=== PATIENT | female | born 1950 | race Caucasian/White ===

== ENCOUNTER 2023-03-07 12:54 | Day surgery (SDC) | payer MEDICARE, SELFPAY ==
[2023-03-05 09:33] VITALS: BMI 22.2
[2023-03-07 13:23] VITALS: BP 141/73; PULSE 90; RESP 16; TEMP 36.6; O2SAT 99
[2023-03-07] MEDS: Lactated Ringers 1,000 ML 100 ML IVCONT (13:35)
--- NOTE | 2023-03-07 14:20 | P.CONAN_ITS ---
Documented by User: Jennifer Ramirez NP 03/06/23 10:40 HPI - Anesthesia Eval Consult details Narrative: 72yo F for Eye Muscle Bilateral Medial Rectus Recession,Right Superior Rectus recession PCP cleared [facility] Past Medical History Medical History (Updated 03/05/23 @ 09:31 by Evangelina Frye RN) History of COVID-19 Hx of flexible sigmoidoscopy Lung nodule Migraine Osteopenia Surgical History Surgical History (Updated 03/05/23 @ 09:31 by Evangelina Frye RN) H/O colonoscopy Hx of breast biopsy Hx of cataract extraction Hx of tonsillectomy Social History Social History (Updated 03/05/23 @ 09:31 by Evangelina Frye RN) Patient Tobacco Use Status: Never used Tobacco Use of substances other than those prescribed or required for medical reasons: No Are you DNR?: No Advance Directives: No Advance Directives Information Provided: Yes Meds Allergies Allergy/AdvReac Type Severity Reaction Status Date / Time No Known Allergies Allergy Verified 03/05/23 09:32 Home Medications Medication Instructions Recorded Confirmed Last Taken Type calcium carbonate 600 mg-vitamin 1 tab PO DAILY 03/05/23 03/05/23 Unknown History D3 5 mcg (200 unit) tablet Exam Exam Date and Time: March 06, 2023 1039 Height,Weight and Vital Signs: Height 5 ft 3 in Weight 56.9 kg Assessment and Plan Assessment Anesthesia Assessment: Chart Reviewed Documented by User: Yvette Patrick DO 03/07/23 14:25 [facility] Past Medical History Medical History (Updated 03/05/23 @ 09:31 by Evangelina Frye RN) History of COVID-19 Hx of flexible sigmoidoscopy Lung nodule Migraine Osteopenia Surgical History Surgical History (Updated 03/05/23 @ 09:31 by Evangelina Frye RN) H/O colonoscopy Hx of breast biopsy Hx of cataract extraction Hx of tonsillectomy History of Problems with Anesthesia: No Social History Social History (Updated 03/05/23 @ 09:31 by Evangelina Frye RN) Patient Tobacco Use Status: Never used Tobacco Use of substances other than those prescribed or required for medical reasons: No Are you DNR?: No Advance Directives: No Advance Directives Information Provided: Yes Meds Allergies Allergy/AdvReac Type Severity Reaction Status Date / Time No Known Allergies Allergy Verified 03/05/23 09:32 Home Medications Medication Instructions Recorded Confirmed Last Taken Type calcium carbonate 600 mg-vitamin 1 tab PO DAILY 03/05/23 03/05/23 Unknown History D3 5 mcg (200 unit) tablet Exam Exam Date and Time: March 07, 2023 1420 Height,Weight and Vital Signs: Height 5 ft 3 in Weight 56.9 kg Vital Signs Temperature 97.9 F 03/07/23 13:23 Pulse Rate 90 03/07/23 13:23 Respiratory Rate 16 03/07/23 13:23 Blood Pressure 141/73 H 03/07/23 13:23 Pulse Oximetry 99 03/07/23 13:23 Oxygen Delivery Method Room Air 03/07/23 13:23 Temperature 97.9 F 03/07/23 13:23 Pulse Rate 90 03/07/23 13:23 Respiratory Rate 16 03/07/23 13:23 Blood Pressure 141/73 H 03/07/23 13:23 Pulse Oximetry 99 03/07/23 13:23 Oxygen Delivery Method Room Air 03/07/23 13:23 Airway Mallampati Class: I TM Dist: >3cm Neck ROM: Full Denture: Upper and Lower Loose/Missing/Broken Teeth: No Heart: S1S2 Lungs: CTAB Assessment and Plan Assessment Anesthesia Assessment: Anesthesia Plan Discussed Final Anesthetic Review History of Problems with Anesthesia: No NPO: Yes ASA Class: II Final Preanesthetic Review: No Changes in Pt Med Stat, Meds/Allgs Chart Reviewed, Consent Obtained/Reviewed and Anes Risks/Benef Reviewed Patient Risk: Low Procedure Risk: Low Anesthetic Plan Anesthetic Plan: GA and Agree w/ Assess. and Plan Disposition: Standard PACU
[2023-03-07 15:37] VITALS: BP 146/79; PULSE 90; RESP 20; TEMP 37.4; O2SAT 98
[2023-03-07 15:40] VITALS: BP 148/79; PULSE 83; RESP 20; O2SAT 98
--- NOTE | 2023-03-07 15:41 | P.OPHTHAL_ITS ---
Ophthalmology Operative Note Date of Service: 03/07/23 Narrative: Diagnoses 1. Esotropia 2. Left hypertropia. Procedures 1. Bilateral medial rectus recessions of 3.5 mm. 2. Recession of left superior rectus [address] Xavier. Anesthesia general. Complications none. The patient was brought to the operating room placed under general anesthesia. The eyes were prepped and draped in the usual sterile ophthalmic fashion. A lid speculum was placed in the right eye and incisions made at bare sclera in the inferonasal fornix. The medial rectus muscle was hooked and secured with a double-armed Vicryl suture. It was disinserted from the globe and reattached to a position 3 .5 mm behind the original insertion. Conjunctiva was closed with interrupted Vicryl sutures. An identical procedure was then performed on the left eye. An incision was then made down to bare sclera in the superior temporal fornix of the left eye. The superior rectus muscle was hooked and secured with a double- armed Vicryl suture. The muscle was disinserted the globe and reattached to a position 2 mm behind the original insertion. Conjunctiva was closed with interrupted Vicryl sutures. The patient was then awoken from general anesthesia and discharged to postoperative recovery in good condition.
[2023-03-07 15:45] VITALS: BP 153/74; PULSE 76; RESP 18; O2SAT 98
[2023-03-07 15:50] VITALS: BP 147/59; PULSE 77; RESP 18; O2SAT 98
[2023-03-07] MEDS: Tetracaine HCl/PF 0.5% Oph Sol 4 ML DROPS 1 DROP EYE-BOTH (16:02)
[2023-03-07 16:04] VITALS: BP 149/69; PULSE 75; RESP 16; O2SAT 98
== END 2023-03-07 16:24 | disposition home or self-care (01) ==
PROVIDERS: PCP Internal Medicine; Visit Provider Ophthalmology
PROC: (CPT 67311; principal; 2023-03-07 14:20)
DX: H53.2 Diplopia (principal); H50.00 Unspecified esotropia; H50.22 Vertical strabismus, left eye; R91.1 Solitary pulmonary nodule; M85.80 Other specified disorders of bone density and structure, unspecified site; B35.1 Tinea unguium; N60.19 Diffuse cystic mastopathy of unspecified breast; Z98.890 Other specified postprocedural states; Z79.899 Other long term (current) drug therapy; Z86.16 Personal history of COVID-19; Z91.81 History of falling
CPT/HCPCS: 67311; 67314; J0131; J1100; J2370; J2405; J3010

== ENCOUNTER 2023-12-18 16:18 | Outpatient (REF) | payer MEDICARE, SELFPAY ==
[2023-12-18 18:03] LABS: C Reactive Protein < 0.10 mg/dL (< or = 0.50)
[2023-12-18 18:19] LABS: Erythrocyte Sedimentation Rate 4 MM/HR (0-20)
[2023-12-20 09:47] LABS: Lyme Abs Screen <0.90 index
== END 2023-12-18 16:19 | disposition home or self-care (01) ==
LOC: HO.LAB 16:18
PROVIDERS: PCP Internal Medicine; Visit Provider Psychiatry & Neurology Neurology
DX: G43.009 Migraine without aura, not intractable, without status migrainosus (principal)
CPT/HCPCS: 36415; 85652; 86140; 86617; 86618